=== PATIENT | female | born 1970 | race Caucasian/White ===

== ENCOUNTER 2022-05-14 12:18 | Emergency (ER) | payer OTHER, SELFPAY ==
[2022-05-14 12:45] VITALS: BP 116/75; PULSE 68; RESP 16; TEMP 36.5; O2SAT 100
--- NOTE | 2022-05-14 13:26 | ED.URI ---
HPI - URI/Sore Throat General Chief Complaint: Upper Respiratory Infection Stated Complaint: HEADACHE/CONGESTION/COUGH Time Seen by Provider: 05/14/22 13:20 Source: patient Mode of arrival: ambulatory Limitations: no limitations History of Present Illness HPI Narrative: Elayne is a 51-year-old female patient presenting to clinic today with complaints of headache, cough, congestion, back pain, nausea, and chills. She reports that this has been ongoing for approximately 4-6 weeks. Has history of migraine headaches and has taken Zofran this morning that has not taken her Imitrex. MD elicited complaint: sore throat and nasal congestion Related Data Home Medications Medication Instructions Recorded Confirmed sumatriptan succinate 50 mg tablet 50 mg PO PRN PRN Migraine Headache 05/14/22 05/14/22 Allergies Allergy/AdvReac Type Severity Reaction Status Date / Time No Known Allergies Allergy Verified 05/14/22 13:20 Review of Systems Review of Systems: Pertinent positives per HPI. Patient denies any rash,visual changes, dizziness, shortness of breath, chest pain, palpitations, diarrhea, constipation, abdominal pain, or any urinary issues. PMFSH Comments At the time of my signature, I reviewed and agree with the nursing past medical, surgical, social, and family history. There is no relevant family history pertinent to the patient complaint. Exam Narrative: General: Well-developed, well nourished, in no apparent distress Head: Normocephalic, atraumatic Eyes: Pupils equally round and reactive to light bilaterally, EOM intact, sclera and conjunctive clear, no discharge, lids normal Ears: TMs intact and clear, ear canals clear, no drainage, grossly hearing normal. Nose: Nares patent, no discharge, no inflammation, no sinus tenderness. Mouth: Oral pharynx without lesions or masses, good dentition, MMM. Neck: Supple, trachea midline, no enlargement of anterior or posterior cervical nodes, no thyroid masses or goiter palpable. Cardio: Regular rate and rhythm, s1 and s2 normal, no murmur appreciated. Resp: Clear to auscultation bilaterally, no rhonchi, rales, wheezing or rubs Course Course Emergency Course: Portions of this record may have been created with voice recognition software. Level of Care: Express Care Visit Vital Signs Vital signs: Vital Signs Temperature 36.5 C 05/14/22 12:45 Pulse Rate 68 05/14/22 12:45 Respiratory Rate 16 05/14/22 12:45 Blood Pressure 116/75 05/14/22 12:45 Pulse Oximetry 100 05/14/22 12:45 Temperature 36.5 C 05/14/22 12:45 Pulse Rate 68 05/14/22 12:45 Respiratory Rate 16 05/14/22 12:45 Blood Pressure 116/75 05/14/22 12:45 Pulse Oximetry 100 05/14/22 12:45 Vital signs reviewed MDM - URI/Sore Throat MDM Narrative Medical decision making narrative: At the time of visit patient is resting comfortably on the exam table. I suspect the patient has acute bacterial rhinosinusitis. Prescription for Augmentin and prednisone was sent to the pharmacy. Supportive measures were discussed with the patient she voiced understanding discharge instructions and agrees to treatment plan. Differential Diagnosis Differential diagnosis: Likely upper respiratory infection, otitis media, sinusitis, viral infection, bronchitis, influenza, pharyngitis and other (COVID) Discharge Plan Discharge Clinical Impression: Acute bacterial rhinosinusitis Patient Disposition: Home, Self-Care Condition: Stable Instructions: Antibiotic Form, Rhinosinusitis (ED) Additional Instructions: Take prescription medications only as prescribed-Augmentin and prednisone Increase fluids and stay well hydrated Tylenol/motrin for pain/fever Flonase and OTC antihistamines as directed Vicks vapor rub to open sinuses Sinus rinses for congestion Cepacol spray, cough drops, throat lozenges, warm tea with honey/lemon, gargle salt water to soothe throat BRAT diet for diarrh
== END 2022-05-14 13:32 | disposition home or self-care (01) ==
PROVIDERS: Emergency Provider Nurse Practitioner Family; PCP Family Medicine Sports Medicine
DX: J01.90 Acute sinusitis, unspecified (principal)
CPT/HCPCS: 99213; G0463

== ENCOUNTER 2022-08-11 05:17 | Emergency (ER) | payer OTHER, SELFPAY ==
--- NOTE | ~2022-08-11 | XR_ITS ---
Clinical Indication: Chest pain PA and lateral views of the chest: Comparison: None Findings: The lungs are clear, without evidence of focal consolidation or pleural effusion. Cardiome diastinal silhouette is within normal limits. Bones and soft tissues are unremarkable. Impression: Normal chest. Reviewed, dictated and finalized at location . Impression: Normal chest.
--- NOTE | ~2022-08-11 | CT_ITS ---
Clinical Indication: Chest pain CT Scan of the Chest with Contrast: Technique: Contiguous sections were acquired throughout the chest after intravenous administration of 100 cc of Omnipaque 350. Dose reduction technique was used on this scan by utilizing automated expos ure control and iterative reconstruction technique. The dose-length product (DLP) was 150.96 mGy-cm. Findings: There is no evidence of any significant mediastinal, hilar or axillary lymphadenopathy. There is no f illing defect in the pulmonary arterial tree to suggest pulmonary embolus. There is no evidence of ao rtic dissection or aneurysm. There is no evidence of pleural or pericardial effusion. The lungs are clear. No pulmonary nodules or infiltrates are noted. Images through the upper abdomen reveal no abnormalities. Impression: No evidence of pulmonary embolus, aortic dissection, or aortic aneurysm. Clear lungs. Reviewed, dictated and finalized at [facility]. Impression: No evidence of pulmonary embolus, aortic dissection, or aortic aneurysm. Clear lungs.
--- NOTE | 2022-08-11 05:19 | ECG_ITS ---
Measurements Intervals Payne Rate: 59 P: 66 CT: 150 QRS: 72 QRSD: 79 T: 58 QT: 390 QTc: 387 Interpretive Statements SINUS BRADYCARDIA BORDERLINE ECG NO PREVIOUS ECG AVAILABLE FOR COMPARISON Electronically Signed On 08-11-2022 7:17:10 CDT by Tray Hill D.O.
[2022-08-11 05:20] VITALS: BP 128/84; PULSE 65; RESP 18; TEMP 36.5; O2SAT 99
[2022-08-11 05:32] LABS: Basophils Percent Auto 0.6 % (0.2-1.2); Eosinophils Absolute Auto 0.1 K/mm3 (0-0.3); Eosinophils Percent Auto 1.8 % (0-4.4); Hemoglobin 13.5 g/dL (12.0-15.0); Immature Granulocyte Absolute 0.01 K/mm3 (0.00-0.031); Immature Granulocyte Percent A 0.2 % (0-0.5); Lymphocytes Absolute Auto 1.76 K/mm3 (0.9-3.2); Lymphocytes Percent Auto 28.5 % (18.3-44.2); Mean Corpuscular HGB Conc 33.8 g/dl (32-36); Mean Corpuscular Hemoglobin 30.9 pg (26-34); Mean Corpuscular Volume 91.5 fl (80-100); Monocytes Absolute Auto 0.4 K/mm3 (0.1-0.6); Monocytes Percent Auto 6.8 % (2.6-8.5); Neutrophils Absolute Auto 3.8 K/mm3 (1.3-6.7); Neutrophils Percent Auto 62.1 % (45.5-73.1); Platelet Count Result 226 k/mm3 (150-375); Red Blood Count 4.37 M/mm3 (4.2-5.4); Red Cell Distribution Width 12.1 % (11.5-14.5); White Blood Count 6.2 K/mm3 (4.5-10.0)
--- NOTE | 2022-08-11 05:37 | ED.GENADULT ---
HPI - General Adult General Chief complaint: Chest Pain <Jarett Carter MD - Last Filed: 08/11/22 18:56> Stated complaint: chest pain <Jarett Carter MD - Last Filed: 08/11/22 18:56> Time Seen by Provider: 08/11/22 05:20 <Jarett Carter MD - Last Filed: 08/11/22 18:56> History of Present Illness HPI narrative: 51-year-old female presented to the emergency department for evaluation of substernal chest pain, increased generalized weakness and fatigue. Patient states over the course of the last week she has had increasing fatigue and intermittent hot flashes. Patient states this morning she woke up to substernal chest pain. Patient reports upon arrival to the ED the pain has been ongoing for 2 to 3 hours. Patient denies any diaphoresis or associated nausea or vomiting with the pain. Patient does report that the pain does radiate to her back. Patient reports yesterday while she was at work she felt increasingly fatigued. Denies any prior history of RI or PE or DVT. Patient believes she is starting to go through menopause. <Jarett Carter MD - Last Filed: 08/11/22 18:56> Related Data Home medications: Home Medications Medication Instructions Recorded Confirmed sumatriptan succinate 50 mg tablet 50 mg PO PRN PRN Migraine Headache 05/14/22 05/14/22 <Jarett Carter MD - Last Filed: 08/11/22 18:56> Allergies/adverse reactions: Allergies Allergy/AdvReac Type Severity Reaction Status Date / Time codeine Allergy Itching Verified 08/11/22 05:19 <Jarett Carter MD - Last Filed: 08/11/22 18:56> Review of Systems Review of Systems: All systems reviewed & are unremarkable except as noted in HPI and below <Jarett Carter MD - Last Filed: 08/11/22 18:56> Exam Narrative: APPEARANCE: Well appearing, no pain, no distress, well-nourished. HEAD: normocephalic, atraumatic. EYES: PERRLA/EOMI, conjunctivae clear. NOSE: Normal no drainage. NECK: Supple. No adenopathy, no masses. RESPIRATORY: Airway patent, respirations nonlabored. Clear to auscultation bilaterally, no rales, rhonchi, wheezing. CARDIOVASCULAR: Regular rate and rhythm without murmurs rubs or gallops. ABDOMINAL: Soft, nontender, nondistended, normal bowel sounds MUSCULOSKELETAL: Moves all extremities. Strength/ROM intact, No edema, No calf tenderness. NEURO: Alert. Cranial nerves II through XII intact. Grossly intact SKIN: Warm, dry. Normal Color <Jarett Carter MD - Last Filed: 08/11/22 18:56> Course Course Emergency Course: 51-year-old female presenting for evaluation of chest pain and generalized fatigue. Differential diagnosis does include pneumonia, pneumothorax, pulm embolism, ACS, anxiety, viral etiology. EKG showed normal sinus rhythm with no evidence of acute STEMI Patient did have improvement of her symptoms with the sublingual nitro but then did develop a headache. Patient was treated with Tylenol for headache and patient is currently pain-free. Patient is afebrile with no leukocytosis. Patient's INR is 1.0. Patient's CMP is within normal limits. Patient is negative for COVID flu and influenza. Chest x-ray showed no acute cardiopulmonary abnormality. Patient's D-dimer was elevated. Patient reports she does have a family history of DVTs and pulm embolisms but has no personal history. Patient was updated on the plan to obtain a CT PE study. All questions and concerns were addressed and patient was resting comfortably. CTA PE study is pending at time of signout. <Jarett Carter MD - Last Filed: 08/11/22 18:56> 51-year-old female presenting for evaluation of chest pain and generalized fatigue. Differential diagnosis does include pneumonia, pneumothorax, pulm embolism, ACS, anxiety, viral etiology. EKG showed normal sinus rhythm with no evidence of acute STEMI Patient did have improvement of her symptoms with the sublingual nitro but then did develop a headache. Patient was treated
[2022-08-11] MEDS: ASPIRIN 81 MG CHEWABLE TABLET 324 MG PO (05:41)
[2022-08-11 05:42] LABS: Prothrombin Time 12.5 Seconds (11.1-14.7)
[2022-08-11] MEDS: NITROGLYCERIN SL 0.4 MG TABLET SUBLINGUAL (05:42)
[2022-08-11 05:43] LABS: Partial Thromboplastin Time 21.6 SECONDS (22.3-36.8)
--- NOTE | 2022-08-11 05:44 | PC.NURSE ---
0540 pt. reports cp 11/20 pt. hr 68 110/74. pt. reports cc REYEZ.
[2022-08-11 06:03] VITALS: BP 111/85; PULSE 53; RESP 12; O2SAT 100
[2022-08-11 06:09] LABS: Alanine Aminotransferase 26 U/L (6-35); Albumin Level 4.1 g/dL (3.5-5.1); Alkaline Phosphatase 48 U/L (38-126); Anion Gap 4 mmol/L (8-16); Aspartate Amino Transferase 26 U/L (14-36); Bilirubin,Total 0.6 mg/dL (0.2-1.3); Blood Urea Nitrogen 15 mg/dL (7-17); Calcium 9.2 mg/dL (8.4-10.2); Carbon Dioxide 26 mmol/L (22-30); Chloride 108 mmol/L (98-107); Estimated CRCL calculation 64 ml/min; Estimated Glomerular Filt Rate > 60; Glucose 92 mg/dL (65-110); Potassium 3.9 mmol/L (3.4-5.0); Sodium 138 mmol/L (137-145)
[2022-08-11 06:20] LABS: Troponin I < 0.012 ng/mL (0.000-0.034)
[2022-08-11 06:27] LABS: D Dimer 1.61 ug/mL (<0.48)
[2022-08-11 06:44] VITALS: BP 110/74; PULSE 53; RESP 20; O2SAT 97
[2022-08-11 06:45] LABS: Influenza A QL RT-PCR Negative (Negative); Influenza B QL RT-PCR Negative (Negative); RSV RNA, RT-PCR Negative (Negative); SARS-CoV-2 RNA PCR Negative
[2022-08-11 09:14] LABS: Troponin I < 0.012 ng/mL (0.000-0.034)
[2022-08-11 09:48] VITALS: BP 124/75; PULSE 60; RESP 16; O2SAT 100
== END 2022-08-11 09:49 | disposition home or self-care (01) ==
PROVIDERS: Emergency Provider Emergency Medicine; PCP Family Medicine Sports Medicine
DX: R07.89 Other chest pain (principal); Z20.822 Contact with and (suspected) exposure to COVID-19
CPT/HCPCS: 36415; 71046; 71275; 80053; 84484; 85025; 85380; 85610; 85730; 87637; 93005; 99284; A9270; Q9967